=== PATIENT | male | born 1990 | race Caucasian/White ===

== ENCOUNTER 2016-05-20 20:41 | Emergency (ER) | payer OTHER ==
[2016-05-20] MEDS ORDERED: HYDROcod/ACET 5/325 Prepack 6 PO ONE ×2 (20:48→21:10)
[2016-05-20] MEDS ORDERED: IBUPROFEN 600 MG TABLET PO STA (20:48)
[2016-05-20] MEDS ORDERED: HYDROcod/ACETAM 5/325 MG TABLET PO STA (20:48)
[2016-05-20] MEDS ORDERED: HYDROcod/ACETAM 5/325 MG TABLET ONE (20:56)
[2016-05-20] MEDS ORDERED: IBUPROFEN 600 MG TABLET PO ONE (20:56)
== END 2016-05-20 22:21 | disposition home or self-care (01) ==
DX: S82.425A Nondisplaced transverse fracture of shaft of left fibula, initial encounter for closed fracture (principal); S99.912A Unspecified injury of left ankle, initial encounter; X50.1XXA Overexertion from prolonged static or awkward postures, initial encounter; Y93.67 Activity, basketball; Y99.8 Other external cause status
CPT/HCPCS: 73610; 99283; 99284; A9270